=== PATIENT | male | born 1975 | race American Indian/Alaskan Native ===

== ENCOUNTER 2024-11-26 14:28 | Emergency (ER) | payer OTHER, BC ==
[~2024-11-26] VITALS: Ht 160 cm; Wt 140.2 kg
[~2024-11-26 14:28] MED LIST: CEPHALEXIN500 MG PO; LAMISIL15 GM TOP
[2024-11-26] MEDS ORDERED: JANUMET XR 50-1 EAC1 PO (14:43)
[2024-11-26] MEDS ORDERED: ATORVASTATIN CA10 MG PO (14:43)
[2024-11-26] MEDS ORDERED: LISINOPRIL30 MG PO (14:43)
[2024-11-26] MEDS ORDERED: LO-DOSE ASPIRIN81 MG PO (14:43)
[2024-11-26 16:05] VITALS: BP 148/85
== END 2024-11-26 16:05 | disposition home or self-care (01) ==
LOC: ED 14:28
DX: S86.811A Strain of other muscle(s) and tendon(s) at lower leg level, right leg, initial encounter (principal); X50.1XXA Overexertion from prolonged static or awkward postures, initial encounter
CPT/HCPCS: 73560; 99283